=== PATIENT | female | born 1950 | race Two or more races ===

== ENCOUNTER → 2018-06-10 | Outpatient (CLI) | payer MEDICARE | END | disposition home or self-care (01) | LOC: CFH 13:20 | PROVIDERS: ATTEND Family Medicine | DX: N63.20 Unspecified lump in the left breast, unspecified quadrant (principal) | CPT/HCPCS: 76641; 77065; G0279 ==

== ENCOUNTER → 2018-06-25 | Outpatient (CLI) | payer MEDICARE ==
[~2018-06-25] MED LIST: LIDOCAINE 1%, 20ML ONE; LIDOCAINE 1%-EPI 1:100K, 20ML ONE; SODIUM BICARBONATE 4.0%, 5ML ONE
== END | disposition home or self-care (01) ==
LOC: CFH 07:52
PROVIDERS: ATTEND Family Medicine
DX: D05.12 Intraductal carcinoma in situ of left breast (principal)
CPT/HCPCS: 19081; 77065; 88305; J3490

== ENCOUNTER 2018-07-04 07:42 | Outpatient (CLI) | payer MEDICARE ==
[2018-07-04] MEDS ORDERED: LIDOCAINE 1%, 20ML ONE (08:30)
[2018-07-04] MEDS ORDERED: LIDOCAINE 1%-EPI 1:100K, 20ML ONE (08:30)
[2018-07-04] MEDS ORDERED: SODIUM BICARBONATE 4.0%, 5ML ONE (08:30)
== END 2018-07-04 23:59 | disposition home or self-care (01) ==
LOC: CFH 07:42
PROVIDERS: ATTEND Family Medicine
DX: N63.20 Unspecified lump in the left breast, unspecified quadrant (principal)
CPT/HCPCS: 19281; J3490

== ENCOUNTER 2018-07-21 07:21 | Day surgery (SDC) | payer MEDICARE ==
[~2018-07-21] VITALS: Ht 154.9 cm; Wt 70.0 kg
[~2018-07-21 07:21] MED LIST changes: +BUPIVACAINE/PF-EPI 0.5% 1:200K ONE; -LIDOCAINE 1%, 20ML ONE; -LIDOCAINE 1%-EPI 1:100K, 20ML ONE; -SODIUM BICARBONATE 4.0%, 5ML ONE
[2018-07-21] MEDS ORDERED: LIDOCAINE-MPF 1%, 5ML ONE (07:51)
[2018-07-21] MEDS ORDERED: METO25TA35 PO (08:21)
[2018-07-21] MEDS ORDERED: AMLO-150 PO (08:21)
[2018-07-21] MEDS ORDERED: LACTATED RINGERS 1,000 ML IV SCH (08:25)
[2018-07-21 08:28] VITALS: BP 150/87
[2018-07-21] MEDS ORDERED: FENTANYL PF 250 MCG/5ML ONE (08:35)
[2018-07-21] MEDS ORDERED: ISOSULFAN BLUE 10 MG/ML, 5ML IV ONE (08:54)
[2018-07-21] MEDS ORDERED: CALCIUM PO (08:55)
[2018-07-21] MEDS ORDERED: MAGNESIUM PO (08:55)
[2018-07-21] MEDS ORDERED: VITAMIN D PO (08:55)
[2018-07-21] MEDS ORDERED: FISH OIL PO (08:55)
[2018-07-21] MEDS ORDERED: HYDROmorphone 2 MG/ML, 1ML IVPush PRN (09:00)
[2018-07-21] MEDS ORDERED: hydrALAzine 20 MG/ML, 1ML IV PRN (09:00)
[2018-07-21] MEDS ORDERED: LABETALOL 5MG/ML, 20ML IV PRN (09:00)
[2018-07-21] MEDS ORDERED: OXYcodone 5 MG/5 ML ORAL.SOL UDC PO PRN (09:00)
[2018-07-21] MEDS ORDERED: METOPROLOL 1 MG/ML, 5ML IV PRN (09:00)
[2018-07-21] MEDS ORDERED: HALOPERIDOL 5 MG/ML IV PRN (09:00)
[2018-07-21] MEDS ORDERED: PROMETHAZINE 25 MG/ML, 1ML IV PRN (09:00)
[2018-07-21] MEDS ORDERED: PROCHLORPERAZINE 5 MG/ML, 2ML IV PRN (09:00)
[2018-07-21] MEDS ORDERED: MEPERIDINE/PF 25MG/0.5ML IVPush PRN (09:00)
[2018-07-21] MEDS ORDERED: DIPHENHYDRAMINE 50 MG/ML, 1ML IVPush PRN (09:00)
[2018-07-21] MEDS ORDERED: FENTANYL PF 100 MCG/2ML IV PRN (09:00)
[2018-07-21] MEDS ORDERED: MIDAZOLAM 1 MG/ML, 2ML ONE (09:03)
[2018-07-21] MEDS ORDERED: KETOROLAC 30 MG/1 ML ONE (09:06)
[2018-07-21] MEDS ORDERED: SUCCINYLCHOLINE 20 MG/ML, 10ML ONE (09:37)
[2018-07-21] MEDS ORDERED: PROPOFOL 10 MG/ML, 20ML ONE (09:37)
[2018-07-21] MEDS ORDERED: ONDANSETRON 2MG/ML, 2ML ONE (09:37)
[2018-07-21] MEDS ORDERED: GLYCOPYRROLATE 0.2MG/1ML, 5ML ONE (09:37)
[2018-07-21] MEDS ORDERED: DEXAMETHASONE 4 MG/ML, 1ML ONE (09:37)
[2018-07-21] MEDS ORDERED: CEFAZOLIN 1,000 MG ONE (09:37)
[2018-07-21] MEDS ORDERED: NEOSTIGMINE 1 MG/ML, 10ML ONE (09:37)
[2018-07-21] MEDS ORDERED: ROCURONIUM 10MG/ML,5ML ONE (09:37)
[2018-07-21] MEDS ORDERED: OXYcodone 5 MG/5 ML ORAL.SOL UDC ONE (10:46)
== END 2018-07-21 12:55 | disposition home or self-care (01) ==
LOC: OUT 07:21
PROVIDERS: ATTEND Surgery
DX: D05.12 Intraductal carcinoma in situ of left breast (principal); R59.1 Generalized enlarged lymph nodes; I10 Essential (primary) hypertension; K57.30 Diverticulosis of large intestine without perforation or abscess without bleeding; Z98.890 Other specified postprocedural states; Z88.8 Allergy status to other drugs, medicaments and biological substances; Z91.013 Allergy to seafood
CPT/HCPCS: 19301; 38525; 38792; 76098; 88307; 93005; A9541; C9898; J0330; J0690; J1100; J1885; J2250; J2405; J2704; J2710; J3010